=== PATIENT | female | born 1955 | race Caucasian/White ===

== ENCOUNTER 2016-08-13 07:01 | Inpatient (IN) | payer OTHER ==
[~2016-08-13] VITALS: Ht 162.6 cm; Wt 90.1 kg
[2016-08-13] MEDS ORDERED: AMLO2.5T PO (07:36)
[2016-08-13] MEDS ORDERED: MULT-709 PO (07:36)
[2016-08-13] MEDS ORDERED: PRAV40TA2 PO (07:36)
[2016-08-13] MEDS ORDERED: ANAS1TAB PO (07:36)
[2016-08-13] MEDS ORDERED: ASPI325T4 PO (07:36)
[2016-08-13] MEDS ORDERED: PROTAMINE SULFATE 10 MG/ML, 5ML ONE (07:47)
[2016-08-13] MEDS ORDERED: HEPARIN 1,000 UNITS/ML, 10ML ONE (07:47)
[2016-08-13] MEDS ORDERED: BUPIVACAINE/PF-EPI 0.5% 1:200K ONE (07:48)
[2016-08-13] MEDS ORDERED: THROMBIN 20,000 UNIT VIAL TP ONE (07:48)
[2016-08-13] MEDS ORDERED: LACTATED RINGERS 1,000 ML IV SCH (07:50)
[2016-08-13 07:54] VITALS: BP 129/93
[2016-08-13 08:13] LABS: HEMOGLOBIN 15.5 g/dL (11.7-16.4)
[2016-08-13 08:17] LABS: BLOOD UREA NITROGEN 13 mg/dL (7-18)
[2016-08-13] MEDS ORDERED: D5%-0.45% NACL 1,000 ML IV SCH (08:30)
[2016-08-13] MEDS ORDERED: FENTANYL PF 250 MCG/5ML ONE ×2 (08:46)
[2016-08-13] MEDS ORDERED: MIDAZOLAM 1 MG/ML, 2ML ONE (08:48)
[2016-08-13] MEDS ORDERED: RANITIDINE 50 MG in SODIUM CHLORIDE 0.9% 100 ML IV STA (08:54)
[2016-08-13] MEDS ORDERED: VISIPAQUE 270 MG/ML, 50ML BOTTLE ONE (09:00)
[2016-08-13] MEDS ORDERED: METOPROLOL 1 MG/ML, 5ML ONE (09:11)
[2016-08-13] MEDS ORDERED: DIPHENHYDRAMINE 50 MG/ML, 1ML ONE (09:11)
[2016-08-13] MEDS ORDERED: DEXAMETHASONE 4 MG/ML, 5ML ONE (09:11)
[2016-08-13] MEDS ORDERED: CEFAZOLIN 1,000 MG ONE (09:11)
[2016-08-13] MEDS ORDERED: ONDANSETRON 2MG/ML, 2ML ONE (09:11)
[2016-08-13] MEDS ORDERED: NEOSTIGMINE 1 MG/ML, 10ML ONE (09:11)
[2016-08-13] MEDS ORDERED: PROPOFOL 10 MG/ML, 20ML ONE (09:11)
[2016-08-13] MEDS ORDERED: ROCURONIUM 10 MG/ML ONE (09:11)
[2016-08-13] MEDS ORDERED: GLYCOPYRROLATE 0.2MG/1ML ONE (09:11)
[2016-08-13] MEDS ORDERED: hydrALAzine 20 MG/ML, 1ML IV PRN (11:30)
[2016-08-13] MEDS ORDERED: ACETAMINOPHEN 325 MG TABLET PO PRN (11:30)
[2016-08-13] MEDS ORDERED: FENTANYL PF 100 MCG/2ML IV PRN (11:30)
[2016-08-13] MEDS ORDERED: METOPROLOL 1 MG/ML, 5ML IV PRN (11:30)
[2016-08-13] MEDS ORDERED: OXYcodone 5 MG/5 ML ORAL.SOL UDC PO PRN (11:30)
[2016-08-13] MEDS ORDERED: HYDROmorphone 1 MG/ML, 1ML IV PRN (11:30)
[2016-08-13] MEDS ORDERED: ALBUTEROL/IPRATROPIUM 2.5MG/0.5MG, 3 ML NPPB PRN (11:30)
[2016-08-13] MEDS ORDERED: PROMETHAZINE 25 MG/ML, 1ML IV PRN (11:30)
[2016-08-13] MEDS ORDERED: MEPERIDINE/PF 25MG/0.5ML IVPush PRN (11:30)
[2016-08-13] MEDS ORDERED: HYDROcodone/APAP 5/325 TABLET PO PRN (14:30)
[2016-08-13] MEDS ORDERED: ONDANSETRON 2MG/ML, 2ML IV PRN (14:30)
[2016-08-13] MEDS ORDERED: morphine SULFATE 10 MG/ML, 1ML IV PRN (14:30)
[2016-08-13] MEDS: CEFAZOLIN PMX 1GM/50ML 50 ML IVPB SCH (17:15)
[2016-08-13] MEDS: SODIUM CHLORIDE 0.9% 1,000 ML IV SCH (18:23)
[2016-08-13 19:36] VITALS: BP 112/64
[2016-08-13] MEDS ORDERED: PRAVASTATIN 40 MG TABLET PO SCH (21:00)
[2016-08-13 23:41] VITALS: BP 106/64
[2016-08-14] MEDS: CEFAZOLIN PMX 1GM/50ML 50 ML IVPB SCH (01:15)
[2016-08-14 04:25] VITALS: BP 102/65
[2016-08-14 05:48] LABS: BLOOD UREA NITROGEN 11 mg/dL (7-18)
[2016-08-14 05:52] LABS: HEMOGLOBIN 12.2 g/dL (11.7-16.4)
[2016-08-14] MEDS ORDERED: ASPIRIN 325 MG TABLET EC PO SCH (06:00)
[2016-08-14] MEDS ORDERED: DIPHENHYDRAMINE 50 MG/ML, 1ML IVPush PRN (06:30)
[2016-08-14] MEDS: SODIUM CHLORIDE 0.9% 1,000 ML IV SCH (07:08)
[2016-08-14] MEDS ORDERED: OMEPRAZOLE 20 MG CAPSULE.DR PO SCH (07:30)
[2016-08-14 07:52] VITALS: BP 114/59
[2016-08-14] MEDS ORDERED: ENOXAPARIN 40 MG/0.4 ML SQ SCH (09:00)
[2016-08-14] MEDS ORDERED: AMLODIPINE 2.5 MG TABLET PO SCH ×2 (09:00→21:00)
[2016-08-14] MEDS ORDERED: ANASTROZOLE 1 MG TABLET PO SCH (09:00)
[2016-08-14] MEDS ORDERED: MULTIVITAMINS/MINERALS TABLET PO SCH (09:00)
[2016-08-14 12:45] VITALS: BP 108/61
== END 2016-08-14 13:18 | disposition home health service (06) | DRG 269 ==
LOC: ORIP 07:01 → EDSTATUS 09:00 → 4NOR 13:51
PROVIDERS: ADMIT Surgery Vascular Surgery; ATTEND Surgery Vascular Surgery
PROC: 04V03E6 (ICD-10-PCS; principal; 2016-08-13 09:00)
DX: I71.4 Abdominal aortic aneurysm, without rupture (principal); Z85.3 Personal history of malignant neoplasm of breast; J45.909 Unspecified asthma, uncomplicated; E78.5 Hyperlipidemia, unspecified; F17.210 Nicotine dependence, cigarettes, uncomplicated; Z88.5 Allergy status to narcotic agent; Z91.018 Allergy to other foods; Z80.3 Family history of malignant neoplasm of breast
CPT/HCPCS: 34802; 34812; 34825; 36200; 36415; 71010; 75952; 75953; 80048; 85025; 86850; 86900; 93005; 94640; J0690; J1100; J1644; J1650; J2250; J2405; J2704; J2710; J2720; J2780; J3010; J3490; J7620; Q9966; C1751; C1768; C1769; C1894; C2628; J1200; J7030; J7120